=== PATIENT | male | born 1955 | race Caucasian/White ===

== ENCOUNTER 2018-06-10 08:09 | Outpatient (CLI) | payer MEDICARE, OTHER ==
--- NOTE | 2018-06-10 10:50 | MRI ---
LUMBAR SPINE MRI WITHOUT CONTRAST: DATE: 06/10/2018. COMPARISON: None. HISTORY: Low back pain with left lower extremity radiculopathy. TECHNIQUE: Multiplanar, multisequence MRI imaging of the lumbar spine provided without contrast. FINDINGS: The sagittal STIR imaging demonstrates no focal area of osseous marrow edema. Assuming 5 lumbar-type vertebral bodies, the conus medullaris terminates at the L1 level. T12-L1: Intervertebral disk height and signal intensity is within normal limits. No significant honorio tral canal or neural foraminal stenosis. L1-2: Disk space narrowing, disk desiccation, and mild disk bulge. Anterior osteophyte formation no vickey. No significant central canal or neural foraminal stenosis. L2-3: Mild bilateral facet hypertrophy. Intervertebral disk height and signal intensity is within n ormal limits with no significant central canal or neural foraminal stenosis. L3-4: Mild bilateral facet hypertrophy. There is disk space narrowing and disk desiccation with mil d disk bulge. Small central annular tear. No significant central canal or neural foraminal stenosis . L4-5: Mild bilateral facet hypertrophy. Mild bilateral neural foraminal stenosis. No significant c entral canal stenosis. L5-S1: There is disk space narrowing, disk desiccation, and mild disk bulge. No significant central canal stenosis. Bilateral facet hypertrophy. Mild/moderate bilateral neural foraminal stenosis, le ft greater than right. IMPRESSION: Lower lumbar spine degenerative change. POS: EDUARDO
== END 2018-06-10 08:10 | disposition home or self-care (01) ==
LOC: BICMRI 08:09
PROVIDERS: ATTEND Family Medicine
DX: M54.5 Low back pain (principal); M47.816 Spondylosis without myelopathy or radiculopathy, lumbar region
CPT/HCPCS: 72148

== ENCOUNTER 2018-07-07 20:30 | Outpatient (CLI) | payer MEDICARE, OTHER | END 2018-07-07 20:31 | disposition home or self-care (01) | LOC: SLEEPLAB 20:30 | PROVIDERS: ATTEND Family Medicine | DX: G47.10 Hypersomnia, unspecified (principal); G47.61 Periodic limb movement disorder; G47.33 Obstructive sleep apnea (adult) (pediatric) | CPT/HCPCS: 95810 ==

== ENCOUNTER 2018-08-14 19:30 | Outpatient (CLI) | payer MEDICARE, OTHER | END 2018-08-14 19:31 | disposition home or self-care (01) | LOC: SLEEPLAB 19:30 | PROVIDERS: ATTEND Family Medicine | DX: G47.10 Hypersomnia, unspecified (principal); G47.61 Periodic limb movement disorder; G47.33 Obstructive sleep apnea (adult) (pediatric) | CPT/HCPCS: 95811 ==